=== PATIENT | male | born 1960 | race Caucasian/White ===

== ENCOUNTER → 2021-05-30 | Outpatient (CLI) | payer BC ==
--- NOTE | 2021-05-30 22:39 | CT ---
EXAMINATION TYPE: CT chest w con DATE OF EXAM: 05/30/2021 COMPARISON: None HISTORY: liver ca, mets CT DLP: 511.1 mGycm, Automated exposure control for dose reduction was used. CONTRAST: Performed injected with 100 mL of Isovue 300. TECHNIQUE: Axial images were obtained at 5 mm thick sections. Reconstructed images are reviewed on [employer] computer in the coronal plane. FINDINGS: Portion of the thyroid visualized is normal. Small left pleural effusion is present. No suspicious lung nodules or infiltrates are evident. No enlarged mediastinal or hilar adenopathy is evident. The ascending aorta diameter at the level o f the main pulmonary artery is 3.8 cm. The main pulmonary artery diameter at the bifurcation is 2.[address] sections are obtained through the upper abdomen. Ascites is evident. Hypodensity with samantha y enhancement is noted in the right lobe liver can be compatible with patient's reported hepatic carc inoma. IMPRESSIONS: 1. No suspicious CT chest changes to suggest metastatic disease. 2. Patient's known hepatic carcinoma partially visualized during this exam. Ascites is present. 3. Small left pleural effusion
== END | disposition home or self-care (01) ==
LOC: RADCTMAIN 15:17
PROVIDERS: ATTEND Internal Medicine Hepatology
DX: C22.0 Liver cell carcinoma (principal); J90 Pleural effusion, not elsewhere classified
CPT/HCPCS: 71260; Q9967